=== PATIENT | female | born 1940 | race Caucasian/White ===

== ENCOUNTER 2017-04-04 19:00 | Emergency (ER) | payer MEDICARE, BC ==
--- NOTE | 2017-04-04 19:11 | Emergency Department Record ---
History of Present Illness - General Stated Complaint: FALL INJURY Time Seen by Provider: 04/04/17 19:06 Source: Patient Mode of Arrival: Ambulatory Limitations: No limitations - History of Present Illness Initial Comments: 76 yo female presents to ED for evaluation of left wrist pain following a fall 45 minutes ago. Patient denies other injury, and denies health problems at her baseline. Patient denies taking anything for her pain symptoms [employer], but reports that she cannot take pain medication as it "knocks me out". Complaint: Injury to:: Left Onset/Timin -: Minutes(s) Other Extremity Injury: Wrist: Left Other Injuries: None Handedness: Right Place: Home Improves With: Immobilization Worsens With: Movement of extremity Context: Fall Associated Symptoms: Denies other symptoms - Related Data Home Medications Medication Instructions Recorded Confirmed Last Taken No Home Med [NO HOME MEDS] 04/04/17 04/04/17 Unknown Allergies Allergy/AdvReac Type Severity Reaction Status Date / Time No Known Drug Allergies Allergy Verified 04/04/17 19:13 Review of Systems Constitutional: Denies: Chills, Fever, Malaise, Night sweats Eyes: Denies: Eye discharge, Eye pain ENT: Denies: Congestion, Ear pain, Epistaxis Respiratory: Denies: Cough, Dyspnea Cardiovascular: Denies: Chest pain, Dyspnea on exertion Endocrine: Denies: Fatigue, Heat or cold intolerance Gastrointestinal: Denies: Abdominal pain, Nausea, Vomiting Genitourinary: Denies: Incontinence, Retention Musculoskeletal: Reports: Arthralgia, Joint swelling. Denies: Back pain, Gout Skin: Denies: Bruising, Change in color Neurological: Denies: Abnormal gait, Confusion, Headache, Seizure Psychiatric: Denies: Anxiety Hematological/Lymphatic: Denies: Anemia, Blood Clots Physical Exam - General General Appearance: Alert, Oriented x3, Cooperative, Moderate distress Limitations: No limitations - Head Head exam: Atraumatic, Normocephalic, Normal inspection Head exam detail: negative: Abrasion, Contusion, Lima's sign, General tenderness, Hematoma, Laceration - Eye Eye exam: Normal appearance. negative: Conjunctival injection, Periorbital swelling, Periorbital tenderness, Scleral icterus - ENT Ear exam: negative: Auricular hematoma, Auricular trauma Nasal Exam: negative: Active bleeding, Discharge, Dried blood, Foreign body Mouth exam: negative: Drooling, Laceration, Muffled voice, Tongue elevation - Neck Neck exam: Normal inspection. negative: Meningismus, Tenderness - Respiratory Respiratory exam: Normal lung sounds bilaterally. negative: Rales, Respiratory distress, Rhonchi, Stridor - Cardiovascular Cardiovascular Exam: Regular rate, Normal rhythm, Normal heart sounds - GI/Abdominal GI/Abdominal exam: Soft. negative: Rebound, Rigid, Tenderness - Rectal Rectal exam: Deferred - exam: Deferred - Extremities Extremities exam: Joint swelling, Tenderness, Other (TTP distal wrist, limited ROM due to pain symptoms.). negative: Calf tenderness, Pedal edema - Back Back exam: Denies: CVA tenderness (R), CVA tenderness (L) - Neurological Neurological exam: Alert, Normal gait, Oriented X3 - Psychiatric Psychiatric exam: Normal affect, Normal mood - Skin Skin exam: Normal color. negative: Abrasion Type of lesion: negative: abrasion Course - Reevaluation(s) Reevaluation #1: 04/04/17 19:54 Left Wrist: Comminuted/Impacted/Intra-articular distal radius fracture with mild dorsal angulation Associated Ulnar styloid fracture. Case was discussed with Dr. Cody Del Cid, will splint with follow-up in his office next week. Patient continues to deny the need for analgesia. Disposition Disposition: Discharge Clinical Impression: Distal radius fracture, left Qualifiers: Encounter type: initial encounter Fracture type: closed Fracture morphology: Colles' Qualified Code(s): S52.532A - Colles' fracture of left radius, initial encounter for closed fracture Disposition: Home, Self-Care Condition: (2) Stable Instructions: Wrist Fracture in Adults (ED) Additional Instructions: Return to ED if your symptoms worsen or if you have any concerns. Follow-up with Dr. Franco in 1-3 days as directed, call [phone]. Leave splint in place until seen by Dr. Franco. Time of Disposition: 20:02 Quality - Quality Measures Quality Measures: N/A - Blood Pressure Screening Does Patient Have Any of the Following: Active Dx of HTN Blood Pressure Classification: Hypertensive Reading Systolic Measurement: 194 Diastolic Measurement: 94 Screening for High Blood Pressure: Patient Exclusion, Hx of HTN [[id number]]
--- NOTE | 2017-04-05 19:49 | RADIOLOGY REPORT ---
EXAM: WRIST, LEFT 3 VIEWS HISTORY: LEFT WRIST PAIN STATUS POST FALL. TECHNIQUE: Four views of the left wrist were obtained. COMPARISON: None. ENCOUNTER: Initial. FINDINGS: There is a comminuted impacted intraarticular fracture of the distal radius. There is mild dorsal angulation of the distal fragment. There is a minimally displaced fracture of the ulnar styloid process. The remaining bones appear intact. Degenerative changes are present at the scaphotrapezial/ trapezoidal articulations. IMPRESSION: 1. COMMINUTED IMPACTED INTRAARTICULAR FRACTURE OF THE DISTAL RADIUS WITH MILD DORSAL ANGULATION. 2. MILDLY DISPLACED ULNAR STYLOID PROCESS FRACTURE. JOB NUMBER: [id number] MTDD
== END 2017-04-04 20:29 | disposition home or self-care (01) ==
LOC: ER 19:00
DX: S52.572A Other intraarticular fracture of lower end of left radius, initial encounter for closed fracture (principal); W10.9XXA Fall (on) (from) unspecified stairs and steps, initial encounter
CPT/HCPCS: 99283; 99284

== ENCOUNTER 2017-04-09 12:02 | Day surgery (SDC) | payer MEDICARE, BC ==
[~2017-04-09 12:02] MED LIST: ACETAMINOPHEN 1,000 MG/100 ML BTL IV ONE; CEFAZOLIN 1 Gram 1 GM/50 ML BAG IVPB ONE
[2017-04-09] MEDS ORDERED: HYDROMORPHONE HCL 2 MG/ML VIAL IV ONE (12:03)
[2017-04-09] MEDS ORDERED: SEVOFLURANE 250 ML INH ONE (12:03)
[2017-04-09] MEDS ORDERED: PROPOFOL 10 MG/ML VIAL IV ONE (12:03)
[2017-04-09] MEDS ORDERED: LIDOCAINE 2% MDV (20MG/ML) 20ML VIAL IV ONE (12:03)
--- NOTE | 2017-04-10 12:50 | Operative Note ---
DATE OF SURGERY: 04/09/2017 Surgeon: Leland Gupta DO PREOPERATIVE DIAGNOSIS: Comminuted displaced fracture of the left distal radius. POSTOPERATIVE DIAGNOSIS: Comminuted displaced fracture of the left distal radius. OPERATION: Closed reduction and percutaneous pinning of left distal radius. DESCRIPTION OF PROCEDURE: This 76-year-old female was taken to the operating room and placed in the supine position on the operating room table. General anesthesia was induced. The left wrist and forearm were prepped with Hibiclens and draped in the usual sterile fashion. Closed reduction of the fracture was accomplished, and the image intensifier was used to confirm satisfactory position and alignment of the fracture fragments. We then placed two 0.54 K wires across the radial styloid obliquely and in a medial direction to engage the medial cortex of the proximal fragment. Once the two K wires were positioned, the image intensifier was again used to confirm satisfactory alignment of the fracture fragments as well as positioning of the two 0.54 K wires. The pins were then cut off. Pin caps applied. Sterile dressings applied with plaster splint immobilization. The patient was taken to the recovery room in satisfactory condition. GROSS PATHOLOGY: This patient demonstrated a comminuted displaced fracture of the distal radius which was treated with closed reduction and percutaneous pinning in the manner described above. JUDD
== END 2017-04-09 15:00 | disposition home or self-care (01) ==
LOC: SUR 12:02
PROVIDERS: ATTEND Orthopaedic Surgery
DX: S52.502A Unspecified fracture of the lower end of left radius, initial encounter for closed fracture (principal); S52.612A Displaced fracture of left ulna styloid process, initial encounter for closed fracture; W17.89XA Other fall from one level to another, initial encounter; Y93.9 Activity, unspecified; Y92.019 Unspecified place in single-family (private) house as the place of occurrence of the external cause; I10 Essential (primary) hypertension
CPT/HCPCS: 76000; 25606; 25651; 01820; J0690; J1170